=== PATIENT | male | born 1955 | race Caucasian/White ===

== ENCOUNTER → 2018-03-05 | Outpatient (CLI) | payer OTHER | LOC: HYPER 06:57 | DX: E11.621 Type 2 diabetes mellitus with foot ulcer (principal); L97.511 Non-pressure chronic ulcer of other part of right foot limited to breakdown of skin; E11.40 Type 2 diabetes mellitus with diabetic neuropathy, unspecified; E78.00 Pure hypercholesterolemia, unspecified; I10 Essential (primary) hypertension; F19.10 Other psychoactive substance abuse, uncomplicated; Z79.4 Long term (current) use of insulin; Z79.84 Long term (current) use of oral hypoglycemic drugs; Z87.891 Personal history of nicotine dependence ==

== ENCOUNTER → 2018-10-22 | Outpatient (CLI) | payer OTHER ==
[~2018-10-22] VITALS: Ht 182.9 cm; Wt 133.8 kg
[~2018-10-22] MED LIST: AMARYL4 MG PO; ASPIRIN81 M2 PO; ATORVASTATIN CA40 MG PO; EFFIENT10 MG PO; INVOKANA300 MG PO; IRBESARTAN-HCT1 EAC1 PO; LEVEMIR FL100 UNIT/2 SUBQ; METFORMIN HCL1000 MG PO; TRULICITY1.5 MG/0.5 SUBQ; UNICOMPLEX M TA1 TA1 PO; VERAPAMIL HCL180 M2 PO; VITAMIN D5000 UNIT PO
[2018-10-22 08:01] LABS: HEMATOCRIT 46.2 % (42.0-52.0); HEMOGLOBIN 15.7 gm/dL (14.0-18.0); MCH 31.8 pg (26.0-34.0); MCHC 34.1 g/dL (28.0-37.0); MCV 93.2 fL (80.0-100.0); RBC 4.96 mil/uL (4.50-6.00); RDW 13.5 % (10.5-14.5); WBC 10.1 thou/uL (4.0-11.0)
[2018-10-22 08:05] LABS: CALCIUM 9.6 mg/dL (8.5-10.1); CREATININE 1.2 mg/dL (0.7-1.3); POTASSIUM 4.3 mmol/L (3.5-5.1)
[2018-10-22 08:07] VITALS: BP 124/78
--- NOTE | 2018-10-22 09:19 | EKG ---
[place] [address] [facility] [facility] [place] [address] ELECTROCARDIOGRAM REPORT Name: ANSELMO LAMAR Room #: REG [facility] Jadon#: [id number] ������������������ Admission: 10/22/18 ������������������ Attend Phys: John Fox MD, Discharge: ������������������ Date of : 55 Report #: [id number] ����������������������������������������������������������������� [id number] THIS REPORT FOR: //name// [facility] Test Date: 2018-10-22 Test Time: 07:55:19 Pat Name: ANSELMO LAMAR Department: Room: Gender: M Calender [employer]: Alma VALLE : 1955 Requested By: John Fox Order Number: [id number] MD: Alfredo Bartlett Measurements Intervals [place] Rate: 87 P: 39 OK: 169 QRS: 17 QRSD: 103 T: 23 QT: 383 QTc: 461 Interpretive Statements Sinus rhythm Normal tracing No previous ECG available for comparison Electronically Signed On 10-22-2018 9:19:25 CDT by Alfredo Bartlett [email or web address] ��������������������������������������������� <ELECTRONICALLY SIGNED> ���������������������������������������� By: Alfredo Bartlett MD, [facility] ��������������������������������������������� 10/22/18 0919 [id number] Alfredo Bartlett MD, FACC /EPI
--- NOTE | 2018-10-22 12:13 | CATHLAB ---
[facility] [employer] [address] INVASIVE PROCEDURE REPORT Name: ANSELMO LAMAR Room #: REG Jadon#: [id number] ������������� Admission: 10/22/18 ������������� Attend Phys: John Fox, Discharge: ��� ������������� ��� Date of : 55 Date of Service: 10/22/18 1212 �� Report #: [id number] �������� ��������������������������������������������[id number] THIS REPORT FOR: //name// APPROVED REPORT Study performed: 10/22/2018 10:49:57 Patient Details Patient Status: Out-Patient Room #: The patient is a 63 year-old male Event Personnel John Fox Seismic Prospecting Observer, Byron Mcadams RN, Mihir Stewart RN RN, Naz Rodriguez WHARF LABORER Scrub, Demetra Landis RTR, WHARF LABORER Monitor Procedures Performed Art Access - R femoral artery* Left Heart Cath w/or w/o Coronaries [id number] [facility] [address] Initial Mod Sed Same Phys/QHP Gr5y 502969 Hemostasis w/ Mynx Abdominal Aortography 695719 Indication Positive stress test Procedure Narrative The Right Groin^ was infiltrated with 1% Lidocaine subcutaneous anesthesia. A PINNACLE 6FR Sheath #[id number] sheath was inserted into the RFA^. Coronary angiography was performed using coronary diagnostic catheters. The right coronary system was accessed and visualized with a 6FR 3DRC #[id number] catheter. The left coronary system was accessed and visualized with a JL4 catheter. The left ventricle was accessed and visualized with a Pigtail catheter. Left ventricular/Aortic Valve gradient assessed . Left ventriculogram was performed in 30 degree projection. An aortogram of the abdominal aorta was performed. Pre-demployment femoral angiogram was performed . Closure device was deployed with a 6 Fr MYNXGRIP 6/7F #[id number]. The patient tolerated the procedure well and there were no complications associated with the procedure. There was no hematoma. Intraoperative Conscious Sedation Sedation start time: 11:18 Case end Time: 11:44 Fentanyl 50 mcg Versed 1.5 mg Fluoro Time: 5.59 minutes [facility] [address] [place] [address] INVASIVE PROCEDURE REPORT Name: ANSELMO LAMAR Room #: [facility]#: [id number] ������������� Admission: 10/22/18 ������������� Attend Phys: John Fox, Discharge: ��� ������������� ��� Date of : 55 Date of Service: 10/22/18 1212 �� Report #: [id number] �������� ��������������������������������������������[id number] Dose: DAP 37592.20 cGycm2 1292 mGy Contrast Type and Amount: Omnipaque 150 ml Hemodynamics The aortic pressure is 143/67 mmHg with a mean of 94 mmHg. The left ventricular pressure is 139/11 mmHg with a mean of mmHg. The left ventricular end diastolic pressure is 28 mmHg. 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 Weight loss aerobic activity would benefit. Continue be aggressive with diabetic hypertensive and cholesterol control. ��������������������������������������������� <ELECTRONICALLY SIGNED> ���������������������������������������� By: John Fox MD, FACC ��������������������������������������������� 10/22/181211 11 11 John Fox MD, FACC /INF
--- NOTE | 2018-10-29 09:02 | D ---
[facility] [place] [place] [address] [place] [address] DISCHARGE SUMMARY Name: ANSELMO LAMAR [id number] Admission: 10/22/18 ������������������ Attend Phys: John Fox MD, Discharge: ������������������ Date of : 55 Report #: [id number] THIS REPORT FOR: //name// CC: John Mathew MD DATE OF SERVICE: 10/22/2018 HISTORY OF PRESENT ILLNESS: The patient is a 63-year-old male who was admitted today with an abnormal nuclear stress test suggesting some inferolateral ischemia. He is a rather large man with a strong family history of premature coronary disease and a coronary calcium score of greater than 2000. Nuclear stress testing suggesting inferolateral ischemia. Precipitated by concerns of progressive shortness of breath with exertion, chest pressure, and heaviness. Decrease in exercise tolerance. He has been compliant with his medications. No PND or orthopnea, no syncope or presyncope. History of peripheral vascular disease with no claudication symptoms. MEDICATIONS: Baby aspirin, Lipitor 40, Invokana 100, Trulicity 1.5, Amaryl 4, Levemir 100, irbesartan 300/12.5, metformin 1000, verapamil 180, vitamin D3. PAST MEDICAL HISTORY: Positive for coronary calcium score, hypertension, hypercholesterolemia, diabetes, knee surgery, DJD, obesity, prior tobacco use. SOCIAL HISTORY: He is with children, 3 to 4 cups of coffee a day, prior tobacco user. No alcohol. ALLERGIES: SULFA. FAMILY HISTORY: Strongly positive in father, grandfather and mother, all had coronary events. REVIEW OF SYSTEMS: Negative except for stated above with some nocturia and frequency. PHYSICAL EXAMINATION: GENERAL: The patient is alert. VITAL SIGNS: Pulse 70s, blood pressure 136/80. EYES: Reveal xanthelasmas. Pharynx is clear. NECK: Shows preserved upstrokes without JVD or bruits. LUNGS: Clear. CARDIAC: Regular rate and rhythm, S1, S2, without murmur or gallop. ABDOMEN: Soft. No HSM or abdominal bruit. EXTREMITIES: Reveal trace of edema, some mild venous stasis. Distal pulses diminished, but intact. [facility] [place] [place] [address] [place] [address] DISCHARGE SUMMARY Name: ANSELMO LAMAR Room #: [facility]#: [id number] Admission: 10/22/18 ������������������ Attend Phys: John Fox MD, Discharge: ������������������ Date of : 55 Report #: [id number] NEUROLOGIC: Nonfocal. SKIN: Warm and dry without xanthoma or ulcer. MUSCULOSKELETAL: Generalized arthritic changes. ASSESSMENT: 1. Coronary artery disease with abnormal nuclear test, markedly elevated coronary calcium score. 2. Hypertension. 3. Hypercholesterolemia. 4. Diabetes. 5. Obesity. 6. Degenerative joint disease. RECOMMENDATIONS AND PLAN: Proceed to the catheterization lab to delineate the anatomy, possible intervention. HOSPITAL COURSE: The patient underwent cardiac catheterization. There is moderate 3-vessel disease, this is a predominantly left dominant system. I should note metformin was held prior to this procedure. We will restart that in 48 hours. His creatinine was 1.2. H and H were 15 and 46, potassium 4.3. There is moderate disease and heavy calcification noted. There is no indication for intervention. There is 40%-50% LAD, 30%-40% ramus, 30%-40% RCA. There is a predominantly left dominant system. 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 The abdominal aortogram does not reveal aneurysm. The patient will be discharged, following on his home medications. We will hold metformin for 48 hours. I would strongly encourage aerobic activity and weight loss. We will continue to be very aggressive with his lipid management. His LDL was 56. I would continue the regimen as it is. Follow up with Dr. Mathew in the next 2 months. I will see him back after the first of the year, 6-7 months. Sooner if there is any change in his status. Thank you for asking me to assist in the care of this patient. ��������������������������������������������� <ELECTRONICALLY SIGNED> ���������������������������������������� By: John Fox MD, FACC ��������������������������������������������� 10/29/18 0902 1152 1229 John Fox MD, FACC /nt
== END | disposition home or self-care (01) ==
LOC: CATH 07:18
PROVIDERS: Internal Medicine Cardiovascular Disease
DX: I25.10 Atherosclerotic heart disease of native coronary artery without angina pectoris (principal); R93.1 Abnormal findings on diagnostic imaging of heart and coronary circulation; I10 Essential (primary) hypertension; E78.00 Pure hypercholesterolemia, unspecified; E11.9 Type 2 diabetes mellitus without complications; G62.9 Polyneuropathy, unspecified; M19.90 Unspecified osteoarthritis, unspecified site; Z79.4 Long term (current) use of insulin; E66.09 Other obesity due to excess calories; Z82.49 Family history of ischemic heart disease and other diseases of the circulatory system; Z98.890 Other specified postprocedural states; Z87.891 Personal history of nicotine dependence

== ENCOUNTER → 2019-12-09 | Outpatient (CLI) | payer OTHER | LOC: HYPER 09:04 | PROVIDERS: ATTEND Specialist | DX: E11.621 Type 2 diabetes mellitus with foot ulcer (principal); L97.512 Non-pressure chronic ulcer of other part of right foot with fat layer exposed; E11.42 Type 2 diabetes mellitus with diabetic polyneuropathy; L84 Corns and callosities; M20.41 Other hammer toe(s) (acquired), right foot; I10 Essential (primary) hypertension; E78.00 Pure hypercholesterolemia, unspecified; E66.09 Other obesity due to excess calories; Z68.39 Body mass index [BMI] 39.0-39.9, adult; Z87.891 Personal history of nicotine dependence; Z79.4 Long term (current) use of insulin; Z79.82 Long term (current) use of aspirin ==

== ENCOUNTER → 2019-12-16 | Outpatient (CLI) | payer OTHER | LOC: HYPER 08:16 | PROVIDERS: ATTEND Specialist | DX: E11.621 Type 2 diabetes mellitus with foot ulcer (principal); L97.512 Non-pressure chronic ulcer of other part of right foot with fat layer exposed; E11.42 Type 2 diabetes mellitus with diabetic polyneuropathy; L84 Corns and callosities; I10 Essential (primary) hypertension; E78.00 Pure hypercholesterolemia, unspecified; E66.9 Obesity, unspecified; Z68.39 Body mass index [BMI] 39.0-39.9, adult; Z79.4 Long term (current) use of insulin; Z87.891 Personal history of nicotine dependence ==

== ENCOUNTER → 2020-10-07 | Outpatient (CLI) | payer OTHER | LOC: SJCVC 09:52 | PROVIDERS: ATTEND Internal Medicine Cardiovascular Disease | DX: R94.31 Abnormal electrocardiogram [ECG] [EKG] (principal); R00.0 Tachycardia, unspecified; I25.10 Atherosclerotic heart disease of native coronary artery without angina pectoris; I10 Essential (primary) hypertension; E78.00 Pure hypercholesterolemia, unspecified; E11.51 Type 2 diabetes mellitus with diabetic peripheral angiopathy without gangrene; R93.1 Abnormal findings on diagnostic imaging of heart and coronary circulation; Z79.4 Long term (current) use of insulin; Z87.891 Personal history of nicotine dependence; Z79.82 Long term (current) use of aspirin; Z79.899 Other long term (current) drug therapy; Z88.2 Allergy status to sulfonamides ==

== ENCOUNTER → 2020-10-25 | Outpatient (CLI) | payer OTHER | LOC: SJCVCIMAG 08:40 | PROVIDERS: ATTEND Internal Medicine Cardiovascular Disease | DX: I08.2 Rheumatic disorders of both aortic and tricuspid valves (principal); I11.9 Hypertensive heart disease without heart failure; I25.10 Atherosclerotic heart disease of native coronary artery without angina pectoris; E78.00 Pure hypercholesterolemia, unspecified; E11.9 Type 2 diabetes mellitus without complications; Z79.4 Long term (current) use of insulin; Z79.82 Long term (current) use of aspirin; Z79.899 Other long term (current) drug therapy ==